=== PATIENT | female | born 1975 | race Caucasian/White ===

== ENCOUNTER 2017-08-05 16:52 | Emergency (ER) | payer BC ==
[2011-06-16 08:49] VITALS: BMI 25.4
== END 2017-08-05 19:09 | disposition home or self-care (01) ==
LOC: D.ER 16:52
DX: G43.909 Migraine, unspecified, not intractable, without status migrainosus (principal); F17.200 Nicotine dependence, unspecified, uncomplicated

== ENCOUNTER 2020-05-11 10:12 | Emergency (ER) | payer SELFPAY ==
[~2020-05-11] VITALS: Ht 170.2 cm; Wt 65.9 kg
[2020-05-11 10:22] VITALS: Ht 170.2 cm; Wt 65.9 kg
[2020-05-11 11:40] VITALS: BP 134/97
== END 2020-05-11 11:40 | disposition home or self-care (01) ==
LOC: D.ER 10:12
DX: G43.809 Other migraine, not intractable, without status migrainosus (principal); G44.89 Other headache syndrome